=== PATIENT | female | born 1940 | race African-American/Black ===

== ENCOUNTER → 2016-08-04 | Outpatient (CLI) | payer OTHER, MEDICARE | LOC: CAT 02:13 | DX: R06.00 Dyspnea, unspecified (principal); J45.909 Unspecified asthma, uncomplicated; J98.11 Atelectasis ==

== ENCOUNTER 2018-09-18 05:38 | Inpatient (IN) | payer OTHER, MEDICARE ==
[2018-09-10 12:19] LABS: HEMOGLOBIN 12.2 gm/dL (12.0-15.0); MCH 28.7 pg (26.0-34.0); MCHC 32.8 g/dL (28.0-37.0); MCV 87.3 fL (80.0-100.0); RBC 4.25 mil/uL (4.20-5.00); RDW 15.9 % (10.5-14.5); WBC 9.3 thou/uL (4.0-11.0)
[2018-09-10 12:29] LABS: PROTIME 10.7 Seconds (9.3-11.4)
[2018-09-10 12:37] LABS: ALBUMIN 3.9 g/dL (3.4-5.0); CALCIUM 9.5 mg/dL (8.5-10.1); CREATININE 1.3 mg/dL (0.6-1.0); POTASSIUM 3.9 mmol/L (3.5-5.1)
[2018-09-10 12:47] LABS: URINE BILIRUBIN NEGATIVE (Negative); URINE BLOOD NEGATIVE (Negative); URINE CLARITY CLEAR; URINE COLOR YELLOW; URINE GLUCOSE-RANDOM* NEGATIVE (Negative); URINE KETONES NEGATIVE (Negative); URINE LEUKOCYTES-REFLEX NEGATIVE (Negative); URINE NITRITE-REFLEX NEGATIVE (Negative); URINE PROTEIN (DIPSTICK) NEGATIVE (Negative); URINE UROBILINOGEN 0.2 E.U./dl (0.2-1.0)
[2018-09-10 23:05] LABS: GLYCOHEMOGLOBIN (HGB A1C) 6.2 % (4.8-5.6)
[~2018-09-18] VITALS: Ht 157.5 cm; Wt 85.3 kg
--- NOTE | ~2018-09-18 | O ---
[facility] [place] [address] OPERATIVE REPORT Name: LUIS ANGEL VILLA Room #: 150-5 ADM IN M.R.#: [id number] Admission: 09/18/18 ������������������ Attend Phys: Donnell Prabhakar MD Discharge: ������������������ Date of : 36 Report #: [id number] THIS REPORT FOR: //name// CC: Lisa Prabhakar DATE OF SERVICE: 09/18/2018 PREOPERATIVE DIAGNOSIS: Left knee osteoarthritis. POSTOPERATIVE DIAGNOSIS: Left knee osteoarthritis. PROCEDURE: Left total knee arthroplasty using a Navio robotic assistance. SURGEON: Donnell Prabhakar MD. HOT METAL MIXER OPERATOR HELPER: Regla Wiley PA-C INDICATION FOR HOT METAL MIXER OPERATOR HELPER: Throughout the case, extensive retraction and manipulation of the knee was required. This was afforded to me by my instruction assistant principal. ANESTHESIA: LMA with an adductor canal block. IMPLANTS: [employer] size 4 narrow Legion cobalt chrome posterior stabilized femur, size 2 tibia, size 10 polyethylene and size 32 patella. TOURNIQUET TIME: 63 minutes. ESTIMATED BLOOD LOSS: Less than 5 mL. COMPLICATIONS: None. SPECIMENS: None. CONDITION UPON LEAVING THE OPERATING ROOM: Stable. INDICATIONS FOR PROCEDURE: The patient is an 78-year-old female with severe left knee osteoarthritis. She failed conservative measures for this and after discussion with her, she elected for left total knee arthroplasty. DESCRIPTION OF PROCEDURE: Risks, benefits, alternatives, complications were discussed in detail with the patient including but not limited to risk of anesthesia, risk of damage to nerves, arteries, blood vessels, risk for infection and bleeding, risk for continued knee pain, need for reoperation. Informed consent was obtained from the patient. Left knee was appropriately marked in the preoperative holding area. Adductor canal block was placed by [facility] [address] [place] [address] OPERATIVE REPORT Name: LUIS ANGEL VILLA Room #: 150-5 ADM IN M.R.#: [id number] Admission: 09/18/18 ������������������ Attend Phys: Donnell Prabhakar MD Discharge: ������������������ Date of : 36 Report #: [id number] anesthesia. IV Ancef was given for preoperative antibiotics. She was brought to the operating room and placed in supine position on the operative table. LMA anesthesia was induced without complication. Tourniquet was placed on the left thigh. Left lower extremity was prepped and draped in normal sterile fashion. Timeout was performed, properly identifying the patient and procedure as well as the instrumentation and implants. All in the operating room were in agreement. Left lower extremity was exsanguinated, tourniquet was inflated. Tourniquet time was 63 minutes. Standard midline approach to the knee was made with 10 blade through the skin. Dissection was taken down sharply to the fascia and deep flaps were developed medially and laterally. Fresh 10 blade was used to make a medial parapatellar arthrotomy and the knee was inspected. There was severe tricompartmental osteoarthritis. The anterior horns of meniscus were removed sharply. Reference pins were placed in the femur and the tibia and the knee was digitally mapped using the SaveFans! Robotic System. We sized the femur and sized 4, tibia was sized 2 with size 11 polyethylene spacer. After acceptance of the intraoperative plan, distal femoral cut was made with a Navio luana. The 4-in-1 cutting block for the size 4 femur was then placed. Anterior, posterior chamfer cuts were made. Attention was then turned to the tibia. The remainder of the menisci removed with Bovie cautery. Tibial resection guide was pinned and placed using SaveFans! for placement and tibial resection was made. After this, flexion and extension gaps were checked and found to have good balance in flexion, extension both medially and laterally. Tibia was sized, found to be of size 2, a size 2 tibial trial was placed, pinned and punched. Size 4 femoral trial was placed and box cut was made. This was then trialed with a size 9 and then a size 10 polyethylene. The 10 polyethylene had good balance through range of motion with a millimeter of laxity medially and laterally throughout range of motion of the knee. After this, 9 mm was taken off posterior surface of the patella and a size 32 patellar trial was placed. Knee was taken through range of motion, found to be stable, found to have good patellar tracking. Trial components were removed. Bony ends were thoroughly irrigated with normal saline. A final size 2 tibia and size 4 narrow cobalt chrome posterior stabilized Legion femur, a size 32 patella were cemented in place using standard cementation techniques. While the cement cured, a periarticular injection consisting of morphine, ropivacaine, epinephrine and Toradol was placed around the knee joint capsule. After the cement cured, tourniquet was deflated. Hemostasis at this time was done with Bovie cautery. A final size 10 polyethylene was placed. A gram of vancomycin was placed deep in the joint. Fascia was closed with 0 Vicryl, skin was closed with 2-0 Vicryl, 3-0 Monocryl. Dermabond and a SURINDER dressing were applied. The patient tolerated this procedure well and went to recovery room under care of anesthesia postoperatively. ��������������������������������������������� ���������������������������������������� By: ��������������������������������������������� [id number] Donnell Prabhakar MD /hao
[~2018-09-18 05:38] MED LIST: ALLEGRA ALLERG180 MG PO; ASPIR 8181 MG PO; BENTYL 10 MG CA10 M1 PO; BIO-IDENTICAL HORMON SUBLING; BIOTIN PO; BREO ELLIPTA 21 EACH INH; CO Q-10200 MG PO; COREG6.25 MG PO; DICLOFENAC SODI75 MG PO; JOINT HEALTH T1 EACH PO; LOSARTAN-HCTZ1 EAC3 PO; MAGNESIUM500 MG PO; MULTI VITAMIN1 EACH PO; OMEGA-31000 M1 PO; PEPCID20 MG PO; PROAIR RESPICL90 MCG INH; PROBIOTIC1 EAC1 PO; SUPER B COMPLE1 EAC2 PO; ZOCOR20 MG PO
[2018-09-18 08:53] VITALS: BP 123/63
[2018-09-18 15:15] VITALS: BP 122/58
[2018-09-18 20:02] VITALS: BP 101/58
[2018-09-19 04:59] VITALS: BP 97/41
--- NOTE | 2018-09-19 05:08 | NUR ---
Pt. rested quietly at intervals during the night when checked on during frequent rounds. She does c/o pain to her left knee and po pain meds given (see emar) with relief noted. UP to the bathroom with assistance and walker. Dressing clean,dry and intact to the left knee. Ice packs applied to the left knee during the shift.
[2018-09-19 05:37] LABS: HEMATOCRIT 29.1 % (37.0-47.0); HEMOGLOBIN 9.4 gm/dL (12.0-15.0); MCH 28.8 pg (26.0-34.0); MCHC 32.3 g/dL (28.0-37.0); MCV 89.2 fL (80.0-100.0); RBC 3.26 mil/uL (4.20-5.00); RDW 16.5 % (10.5-14.5); WBC 16.8 thou/uL (4.0-11.0)
[2018-09-19 07:35] VITALS: BP 115/63
--- NOTE | 2018-09-19 14:24 | NUR ---
PT ADMITTED RELATED TO LEFT TOTAL KNEE REPLACEMENT. CM REVIEWED CHART AND SPOKE WITH CARE TEAM. CM MET WITH PT AND HER DTR AT BEDSIDE THIS DAY. PT IS A&O X4. CM ROLE INTRODUCED. PT INDICATED SHE LIVES IN A GA WITH 2 STEPS TO ETNER AND NO STEPS INSIDE. 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 PT INDICATED SHE WOULD NEED A FEE ISSUED TO HER PTD. CM NOTIFIED [employer] AND SHE DELIVERED FWW. PT IS ESTABLISHED WITH OUTPATIENT PT UPON DC. PT ANTICIPATES DISCHARGING HOME THIS AFTERNOON. CM ABLE TO ASSIST SHOULD ANY OTHER DC NEEDS ARISE.
[2018-09-19 14:37] VITALS: BP 133/76
--- NOTE | 2018-09-19 18:35 | NUR ---
RETURNED FROM OR AAOX2 NAME AND PLACE VERY FORGETFUL. LEFT LEG SPLINT AND COURTNEY CLEAN AND DRY. IV RESTARTED LEFT ARM BY IV NURSE. PAIN WELL CONTROLLED WITH MEDICATION. SCD ON RIGHT LEG. FAIR APPETITE. PLEASANT AND COOPERATIVE. REVIEWED HOW TO CALL NURSE MULTIPLE TIMES.
[2018-09-19 20:08] VITALS: BP 112/58
--- NOTE | 2018-09-20 03:30 | NUR ---
ASSUMED CARE AROUND 1900. AXOX4. S/P LKNEE OA. GETS UP WITH WALKER AND GAIT BELT. DTR AT BEDSDIE AT ALL TIMES. PAIN MANAGED WITH MORPHINE. NO S/S ACUTE DISTRESS NOTED OR REPORTED AT THIS TIME. WILL CONT TO MONITOR FOR ANY CHANGES IN CONDITION.
[2018-09-20 04:31] VITALS: BP 76/48
[2018-09-20 05:40] LABS: HEMOGLOBIN 8.8 gm/dL (12.0-15.0); MCH 28.9 pg (26.0-34.0); MCHC 32.8 g/dL (28.0-37.0); MCV 88.1 fL (80.0-100.0); RBC 3.06 mil/uL (4.20-5.00); RDW 16.9 % (10.5-14.5); WBC 19.8 thou/uL (4.0-11.0)
[2018-09-20 05:54] VITALS: BP 93/51
[2018-09-20 07:27] VITALS: BP 83/52
[2018-09-20 09:30] VITALS: BP 83/52
[2018-09-20] MEDS ORDERED: NEURONTIN 300300 M1 PO (09:36)
[2018-09-20] MEDS ORDERED: TRI-BUFFERED A325 M1 PO (09:36)
[2018-09-20 14:29] VITALS: BP 83/52
--- NOTE | 2018-09-20 16:13 | NUR ---
PATIENT DOING WELL TODAY. AFEBRILE, UP WITH PHYSICAL THERAPY. TOLERATING DIET. VOIDING WITHOUT DIFFICULTY. PAIN WELL CONTROLLED WITH MORPHINE. JOEY WITH PHYSICAL THERAPY STATED PATIENT OK TO GO HOME. RECEIVED DISCHARGE ORDER FROM REBECA SANTANA NP. DISMISSED HOME IN GOOD CONDITION.
== END 2018-09-20 16:06 | disposition home or self-care (01) | DRG 470 ==
LOC: TBA 05:38 → 4W 05:38 → PRE 05:45 → 4W 16:01 → ENTRNSPT 09-20 15:59 → 4W 09-20 16:06
PROVIDERS: ADMIT Orthopaedic Surgery
PROC: 0SRD0J9 Replacement of Left Knee Joint with Synthetic Substitute, Cemented, Open Approach (ICD-10-PCS; principal; 2018-09-18)
PROC: 8E0Y0CZ Robotic Assisted Procedure of Lower Extremity, Open Approach (ICD-10-PCS; principal; 2018-09-18)
DX: M17.12 Unilateral primary osteoarthritis, left knee (principal); M70.62 Trochanteric bursitis, left hip; M16.12 Unilateral primary osteoarthritis, left hip; Z79.899 Other long term (current) drug therapy; Z88.0 Allergy status to penicillin; Z88.8 Allergy status to other drugs, medicaments and biological substances; Z79.82 Long term (current) use of aspirin; Z88.6 Allergy status to analgesic agent; Z91.040 Latex allergy status; Z87.891 Personal history of nicotine dependence
CPT/HCPCS: 10047; 50010; 50101; 50415; 50954; 51130; 51225; 53000; 53078; 53364; 54118; 56527; 56528; 57095; 57103; 57110; 57127; 57180; 62110; 62900; 64043; 65060; 70005